=== PATIENT | male | born 1985 | race Caucasian/White ===

== ENCOUNTER 2017-06-30 16:56 | Emergency (ER) | payer SELFPAY ==
[~2017-06-30] VITALS: Ht 185.4 cm; Wt 111.1 kg
== END 2017-06-30 18:42 | disposition home or self-care (01) ==
LOC: ED 16:56
DX: M25.532 Pain in left wrist (principal)

== ENCOUNTER 2017-06-30 19:22 | Emergency (ER) | payer OTHER ==
[~2017-06-30] VITALS: Ht 185.4 cm; Wt 111.1 kg
== END 2017-06-30 19:59 | disposition home or self-care (01) ==
LOC: ED 19:22
PROC: 2W3DX1Z Immobilization of Left Lower Arm using Splint (ICD-10-PCS; principal; 2017-06-30)
DX: S63.502A Unspecified sprain of left wrist, initial encounter (principal); F17.200 Nicotine dependence, unspecified, uncomplicated; X58.XXXA Exposure to other specified factors, initial encounter; Y93.61 Activity, american tackle football
CPT/HCPCS: 29125; 99282